=== PATIENT | female | born 1945 | race Caucasian/White ===

== ENCOUNTER 2016-11-24 08:38 | Emergency (ER) | payer MEDICAID ==
--- NOTE | 2016-11-24 08:38 | EDPHY ---
H & P Time Seen by Provider: 11/24/16 08:38 HPI/ROS: CHIEF COMPLAINT: Altered mental status HISTORY OF PRESENT ILLNESS: Patient was found at [facility] sitting on the toilet having a bowel movement, altered. She arrives by EMS. She remembers sitting on the toilet and feeling weak, now just feels very tired and thirsty. Denies headache or chest pain or shortness of breath. No fevers. REVIEW OF SYSTEMS: Eyes: No change in vision right now. ENT: no sore throat Cardiac: no chest pain or syncope Pulmonary: no cough or SOB Abdomen: No abdominal pain. Musculoskeletal: No leg swelling, chronic left lower leg wound. Skin: Chronic left lower leg wound wrapped. Neuro: no headache Constitutional: no fever : no urinary symptoms A comprehensive 10 point review of systems is otherwise negative aside from elements mentioned in the history of present illness. PAST MEDICAL HISTORY: Paperwork from [facility] dated today reviewed by myself. Includes cellulitis, hypertension, DVT on Xarelto, hypothyroidism. Patient is a most form that says no CPR or intensive care, do not intubate. Listed medications do include hydromorphone, cyclobenzaprine, and alprazolam. Social history: [facility] resident. General Appearance: Alert and conversant, cooperative. Eyes: No scleral icterus. ENT, Mouth: Slightly dry mucous membranes Respiratory: Normal respiratory effort, breath sounds equal, lungs are clear to auscultation. Cardiovascular: Regular rate and rhythm. No murmur. Gastrointestinal: Abdomen is soft and non tender. Neurological: Alert and oriented x3. Normally conversant. Face symmetric, normal movement and sensation in all extremities. Skin: Left lower extremity wound with granulation tissue present just proximal to the ankle. No surrounding redness or heat or lymphangitis. Not fluctuant. Does not appear acutely infected. No sacral decubitus. Musculoskeletal: No peripheral edema and no joint swelling. Psychiatric: Not agitated. Emergency Department course/MDM: Likely vasovagal episode with severe diarrhea. She did get a stool softener last night. She is on antibiotics but her left leg does not appear to be acutely cellulitic. Does not have clinical presentation suggesting fasciitis is highly likely. Plan for IV fluids, EKG, CBC and chemistry, stool sample testing. GI stool panel is negative. Did not have recurrent syncope. I think malignant dysrhythmia is unlikely. White blood cell count noted but patient clinically does not have evidence of lower extremity cellulitis that is active. Constitutional: Initial Vital Signs Temperature (C) 36.8 C 11/24/16 09:11 Heart Rate 82 11/24/16 09:11 Respiratory Rate 18 11/24/16 09:11 Blood Pressure 117/82 H 11/24/16 09:11 O2 Sat (%) 94 11/24/16 09:11 O2 Delivery Mode Room Air O2 (L/minute) 2 Medical Decision Making - Diagnostics EKG Interpretation: 12-lead EKG interpreted by me; official reading is in trace master. My interpretation is sinus rhythm rate 82, inferior Q-waves, nonspecific anterior T -wave abnormalities. Differential Diagnosis: Differential diagnosis considered for syncope including but not limited to vasovagal syncope, arrhythmia, dehydration, and blood loss. - Data Points Laboratory Results: Laboratory Results 11/24/16 09:42 11/24/16 09:42 11/24/16 11/24/16 09:42 09:42 WBC 15.86 10^3/uL H 10^3/uL (3.80-9.50) RBC 4.86 10^6/uL 10^6/uL (4.18-5.33) Hgb 14.5 g/dL g/dL (12.6-16.3) Hct 43.8 % % (38.0-47.0) MCV 90.1 fL fL (81.5-99.8) MCH 29.8 pg pg (27.9-34.1) MCHC 33.1 g/dL g/dL (32.4-36.7) RDW 14.2 % % (11.5-15.2) Plt Count 529 10^3/uL H 10^3/uL (150-400) MPV 8.7 fL fL (8.7-11.7) Neut % (Auto) 87.9 % H % (39.3-74.2) Lymph % (Auto) 6.3 % L % (15.0-45.0) [place] % (Auto) 4.4 % L % (4.5-13.0) Eos % (Auto) 0.1 % L % (0.6-7.6) Baso % (Auto) 0.3 % % (0.3-1.7) Nucleat RBC Rel Count 0.0 % % (0.0-0.2) Absolute Neuts (auto) 13.94 10^3/uL H 10^3/uL (1.70-6.50) Absolute Lymphs (auto) 1.00 10^3/uL 10^3/uL (1.00-3.00) Absolute Monos (auto) 0.70 10^3/uL 10^3/uL (0.30-0.80) Absolute Eos (auto) 0.02 10^3/uL L 10^3/uL (0.03-0.40) Absolute Basos (auto) 0.04 10^3/uL 10^3/uL (0.02-0.10) Absolute Nucleated RBC 0.00 10^3/uL 10^3/uL (0-0.01) Immature Gran % 1.0 % % (0.0-1.1) Immature Gran # 0.16 10^3/uL H 10^3/uL (0.00-0.10) Sodium 138 mEq/L mEq/L (134-144) Potassium 4.1 mEq/L mEq/L (3.5-5.2) Chloride 103 mEq/L mEq/L (97-110) Carbon Dioxide 24 mEq/l mEq/l (22-31) Anion Gap 11 mEq/L mEq/L (8-16) BUN 32 mg/dL H mg/dL (7-23) Creatinine 0.6 mg/dL mg/dL (0.6-1.0) Estimated GFR > 60 Glucose 106 mg/dL H mg/dL (70-100) Calcium 9.5 mg/dL mg/dL (8.5-10.4) Troponin I < 0.012 ng/mL ng/mL (0-0.034) Microbiology Results: MICROBIOLOGY 11/24/16 09:04 Stool Gastrointestinal Tract Panel (PCR) - Final No Organism Detected Medications Given: Discontinued Medications Sodium Chloride (Ns) 1,000 mls @ 0 mls/hr IV ONCE ONE PRN Reason: Wide Open Stop: 11/24/16 10:17 Last Admin: 11/24/16 11:18 Dose: Not Given Departure - Departure Disposition: Home, Routine, Self-Care Clinical Impression: Syncope Qualifiers: Syncope type: vasovagal syncope Qualified Code(s): R55 - Syncope and collapse Diarrhea Qualifiers: Diarrhea type: unspecified type Qualified Code(s): R19.7 - Diarrhea, unspecified Condition: Good Instructions: Syncope (ED) Referrals: ANNE MARIE AYALA [Non Staff Provider ()] - As per Instructions
--- NOTE | 2016-11-24 09:23 | CPEKG ---
Heart Rate: 82 RR Interval: 732 P-R Interval: 132 QRSD Interval: 88 QT Interval: 404 QTC Interval: 472 P [place]: 60 QRS [place]: -77 T Wave [place]: 47 EKG Severity - ABNORMAL ECG - EKG Impression: SINUS RHYTHM EKG Impression: INFERIOR INFARCT, OLD EKG Impression: ABNORMAL T, CONSIDER ISCHEMIA, ANTERIOR LEADS Electronically Signed By: Ziggy Olmedo 24-Nov-2016 09:25:38
[2016-11-24 09:56] LABS: ABSOLUTE IMMATURE GRANULOCYTES 0.16 10^3/uL (0.00-0.10); ADD DIFF? NO; ADD MORPH? NO; ADD SCAN? NO; ATYPICAL LYMPHOCYTE FLAG 0 (0-99); FRAGMENT RBC FLAG 10 (0-99); HEMATOCRIT 43.8 % (38.0-47.0); HEMOGLOBIN 14.5 g/dL (12.6-16.3); LEFT SHIFT FLG 0 (0-99); LIPEMIA HEMOLYSIS FLAG 80 (0-99); MEAN CELL HEMOGLOBIN 29.8 pg (27.9-34.1); MEAN CELL HEMOGLOBIN CONCENTR. 33.1 g/dL (32.4-36.7); MEAN CELL VOLUME 90.1 fL (81.5-99.8); MEAN PLATELET VOLUME 8.7 fL (8.7-11.7); PLATELET CLUMPS FLAG 0 (0-99); PLATELET COUNT 529 10^3/uL (150-400); RED BLOOD CELL COUNT 4.86 10^6/uL (4.18-5.33); RED CELL DISTRIBUTION WIDTH 14.2 % (11.5-15.2)
[2016-11-24 10:14] LABS: ANION GAP 11 mEq/L (8-16); CALCIUM 9.5 mg/dL (8.5-10.4); CARBON DIOXIDE 24 mEq/l (22-31); CHLORIDE 103 mEq/L (97-110); CREATININE 0.6 mg/dL (0.6-1.0); GLOMERULAR FILTRATION RATE > 60; GLUCOSE 106 mg/dL (70-100); POTASSIUM 4.1 mEq/L (3.5-5.2); SODIUM 138 mEq/L (134-144)
[2016-11-24] MEDS ORDERED: NS 1,000 ML IV ONE (10:16)
[2016-11-24 10:25] LABS: TROPONIN I < 0.012 ng/mL (0-0.034)
[2016-11-24 11:26] VITALS: BP 150/103; PULSE 83; RESP 16; TEMP 98.1; O2SAT 93
== END 2016-11-24 11:47 | disposition home or self-care (01) ==
DX: R55 Syncope and collapse (principal); R19.7 Diarrhea, unspecified; I10 Essential (primary) hypertension; Z79.01 Long term (current) use of anticoagulants